=== PATIENT | female | born 1985 | race Caucasian/White ===

== ENCOUNTER 2018-10-18 13:48 | Day surgery (SDC) | payer MEDICAID, SELFPAY ==
[2018-10-18] VITALS (8 sets, daily range): BP systolic 109–131; BP diastolic 70–75; PULSE 78–110; RESP 16–18; TEMP 36.6–36.9; O2SAT 96–99; BMI 30.9
--- NOTE | 2018-10-18 14:08 | US_ITS ---
We are attempting to reach an attending provider to discuss findings. An addendum with communication details will be sent when the communication is complete. STUDY: ULTRASOUND OF THE FEMALE PELVIS - COMPLETE REASON FOR EXAM: Female, 32 years old. Bleeding TECHNIQUE: Transabdominal and transvaginal ultrasound images were obtained of the pelvis TECHNICAL QUALITY: Adequate. COMPARISON: Pelvic ultrasound from June 29, 2016 FINDINGS: The uterus measures 18 x 11 x 7 cm. Normal uterine cervix. The endometrium measures 26 mm in thickness. There is no demonstrated myometrial mass. The right ovary is not visualized. . There is no right ovarian cyst or ovarian mass. There is no visualized right adnexal mass or complex lesion. There is normal arterial and normal venous vascularity. There is a left adnexal hypoechoic region measuring 12 x 8.2 x 7.8 cm in size, hypoechoic, not well characterized. In association is a 6.2 x 6 x 4.2 cm cyst. There is minimal blood flow demonstrated. There is no fluid in the cul-de-sac. US/Transvaginal Non- IMPRESSION: Endometrial thickening of 26 mm, likely retained products of conception. Left adnexal hypoechoic region as described above with associated cyst. Nonspecific, with considerations including ovary/hemorrhagic cyst, enlarged ovary with torsion, uterine fibroid or mass, among other etiologies. Clinical correlation is suggested. Consider pelvic MRI if additional characterization is needed. Electronically Signed: [place], at 16:58 EDT Tel , Service support ,
--- NOTE | 2018-10-18 14:09 | ED.VISSUMM ---
- ER Visit Summary Date of Service: 10/18/18 Chief Complaint: Fever and abdominal pain History of Present Illness: The patient is a 32 F who presents with fever and abdominal pain for the past week. Patient had a vaginal delivery 1 week ago and has been having fever and pain ever since. Patient states the placenta was difficult to deliver. The patient has had a in the past but states this was a vaginal delivery. Patient states her pain is over the lower abdomen. Patient denies any nausea or vomiting. Patient denies any dysuria or hematuria. Patient states her vaginal bleeding is normal bleeding. Physical Examination: Vital signs are stable except for mild tachycardia of 110. Patient is afebrile. Patient is in no acute distress. Oral mucosa is pink and moist. Neck is supple. Trachea is midline. There is no JVD noted. Heart was regular and tachycardic. Lungs are clear and equal bilaterally. Abdomen is soft. Bowel sounds are normal. There is lower abdominal tenderness. There is no rebound or guarding noted. Test Results: CBC shows mild leukocytosis of 11.2. Hemoglobin was 8.1 and hematocrit was 24.4. Platelets were elevated at 529. Metabolic profile was normal. Urinalysis was normal. Blood type is O+. Ultrasound of the pelvis was obtained. There is thickened endometrium consistent with retained products of conception. There is also a 12 x 8.2 x 7.8 cm hypoechoic area in the left adnexa and a 6.2 x 6 x 4.2 cm cyst. This could be enlarged ovary with torsion, uterine fibroid or mass, hemorrhagic cyst, or enlarged ovary. Emergency Department Course and Treatment: Patient was given IV fluids and morphine. Case was discussed with Dr. Grande. She will be in to evaluate the patient and likely take the patient to surgery tonight. Patient was instructed to remain n.p.o. Patient understood and was agreeable with the plan. All questions were answered. Disposition: Admit to surgery Impression: 1. Ovarian torsion 2. Retained products of conception This note was generated with [employer] dictation software. It may contain incorrect words, spelling, and punctuation that were not noted in review of the chart prior to signing ED Disposition - Plan for ED Patient: Disposition: [facility] Diagnosis: Ovarian torsion, Retained products of conception Referrals: Jovanny Ernandez DO [Primary Care Provider] -
--- NOTE | 2018-10-18 14:12 | ED.DCSUM_ITS ---
- ER Visit Summary Date of Service: 10/18/18 Chief Complaint: Fever and abdominal pain History of Present Illness: The patient is a 32 F who presents with fever and abdominal pain for the past week. Patient had a vaginal delivery 1 week ago and has been having fever and pain ever since. Patient states the placenta was difficult to deliver. The patient has had a in the past but states this was a vaginal delivery. Patient states her pain is over the lower abdomen. Patient denies any nausea or vomiting. Patient denies any dysuria or hematuria. Patient states her vaginal bleeding is normal bleeding. Physical Examination: Vital signs are stable except for mild tachycardia of 110. Patient is afebrile. Patient is in no acute distress. Oral mucosa is pink and moist. Neck is supple. Trachea is midline. There is no JVD noted. Heart was regular and tachycardic. Lungs are clear and equal bilaterally. Abdomen is soft. Bowel sounds are normal. There is lower abdominal tenderness. There is no rebound or guarding noted. Test Results: CBC shows mild leukocytosis of 11.2. Hemoglobin was 8.1 and hematocrit was 24.4. Platelets were elevated at 529. Metabolic profile was normal. Urinalysis was normal. Blood type is O+. Ultrasound of the pelvis was obtained. There is thickened endometrium consistent with retained products of conception. There is also a 12 x 8.2 x 7.8 cm hypoechoic area in the left adnexa and a 6.2 x 6 x 4.2 cm cyst. This could be enlarged ovary with torsion, uterine fibroid or mass, hemorrhagic cyst, or enlarged ovary. Emergency Department Course and Treatment: Patient was given IV fluids and morphine. Case was discussed with Dr. Grande. She will be in to evaluate the patient and likely take the patient to surgery tonight. Patient was instructed to remain n.p.o. Patient understood and was agreeable with the plan. All questions were answered. Disposition: Admit to surgery Impression: 1. Ovarian torsion 2. Retained products of conception This note was generated with [employer] dictation software. It may contain incorrect words, spelling, and punctuation that were not noted in review of the chart prior to signing ED Disposition - Plan for ED Patient: Disposition: Acute Care [facility] Diagnosis: Ovarian torsion, Retained products of conception Referrals: Jovanny Ernandez DO [Primary Care Provider] -
--- NOTE | 2018-10-18 14:35 | ED.RN ---
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 DIFFICULTY WITH PLACENTA DELIVERY, WAS IN PIECES. INERMITTENT FEVER ANYWHERE FROM NORMAL TO 102 SINCE SUNDAY
[2018-10-18] MEDS: 0.9% Normal Saline 1,000 ML 1000 ML IV (14:55)
--- NOTE | 2018-10-18 14:56 | ED.RN ---
WAIT/OTHER D/T BREAST FEEDING INFANT.
[2018-10-18 15:00] LABS: Bacteria 0 SEEN /hpf (None Seen); Mucous, Urine 0 SEEN /hpf (<or=2+)
[2018-10-18 15:16] LABS: Absolute Lymphocyte Count 2.49 X10^3/ul (0.83-4.51); Absolute Neutrophil Count 7.1 X10^3/uL (2.0-7.7); Basophil# 0.05 X10^3/uL; Basophil% 0.4 % (0-1); Eosinophils% 3.6 % (0-5); Hematocrit 24.4 % (37-47); Hemoglobin 8.1 g/dl (12.0-15.0); Lymphocyte # 2.49 X10^3/ul (4.0); Lymphocyte % 22.3 % (19-41); Mean Corp Hgb Conc 33.2 g/gl (32-36); Mean Corpuscular Hgb 31.2 pg (27.0-32.0); Mean Corpuscular Volume 93.8 fL (81-99); Mean Platelet Vol. 8.5 fl (6.2-12.0); Monocyte% 9.8 % (0-10); Neutrophil # 7.06 X10^3/uL (2.7-7.7); Neutrophil % 63.3 % (47-70); Platelet Count 529 K/mm3 (150-450); RBC Distribution Width CV 12.7 % (11.6-14.6); RBC Distribution Width SD 43.4 fl (35.1-43.9); White Blood Count 11.2 K/mm3 (4.4-11.0)
[2018-10-18 15:18] LABS: Color, Urine Yellow (Yellow); Glucose, Dipstick Normal (Normal); Ketone-Dipstick Negative (Negative); Leukocyte Esterase-Dipstick 25 /ul (Negative); Nitrite-Dipstick Negative (Negative); Occult Blood-Urine 250 /ul (Negative); Protein-Dipstick 15 mg/dl (Negative); Urine Bilirubin Dipstick Negative (Negative); Urine Clarity Sl Cldy (Clear); Urine Urobilinogen Normal (Normal); Urine pH 6.5 (5.0 - 8.0)
[2018-10-18 15:21] LABS: Red Blood Cells-Urine 0-5 SEEN /hpf (0-5); Squamous Epithelial Cells - UA 0-5 SEEN /hpf (5-10); White Blood Cells 0-5 SEEN /hpf (0-5)
[2018-10-18 15:26] LABS: Differential Indicated SCAN CRITERIA MET; POSITIVE COUNT NO; POSITIVE DIFFERENTIAL NO; POSITIVE MORPHOLOGY YES
[2018-10-18 15:40] LABS: Anisocytosis 1+; Hypochromasia 1+; Macrocytosis RARE; Platelet Estimate MOD INC (ADEQ)
--- NOTE | 2018-10-18 17:50 | PCM.HP.STD ---
History of Present Illness Date of Admission: 10/18/18 Chief Complaint: fevers, abdominal pain The patient is a 32 year old 0 2 10 presents to Emergency Dept with CC of fever and abdominal pain for the past week. Patient had a vaginal delivery 1 week ago and has been having low grade fevers and pain ever since. Patient states the placenta was difficult to deliver. She is nursing and expects pain as uterus is geovanna. Patient states her pain is over the lower abdomen. Patient denies any nausea or vomiting. Patient denies any dysuria or hematuria. Patient states her vaginal bleeding is normal bleeding. CBC shows mild leukocytosis of 11.2. Hemoglobin was 8.1 and hematocrit was 24.4. Platelets were elevated at 529. Metabolic profile was normal. Urinalysis was normal. Blood type is O+. Ultrasound of the pelvis: UTERUS 18 x 11 x 7 cm. Normal uterine cervix. Endometrial stripe 2.6 cm No fibroids. The right ovary is not visualized. Left adnexal mass, hypoechoic -- 12 x 8.2 x 7.8 cm not well characterized. Also a 6.2 x 6 x 4.2 cm cyst. There is minimal blood flow demonstrated. There is thickened endometrium consistent with retained products of conception. There is also a 12 x 8.2 x 7.8 cm hypoechoic area in the left adnexa and a 6.2 x 6 x 4.2 cm cyst. This could be enlarged ovary with torsion, uterine fibroid or mass, hemorrhagic cyst, or enlarged ovary. POB: [id number] with all vaginal deliveries, except twin delivery by C/S PGYN: Negative. Menarche 10 yo. 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 Denies: Anorexia Eyes: Denies: Blurred vision HEENT: Denies: Difficulty Hearing Cardiovascular: Denies: Chest Pain Respiratory: Denies: Cough Gastrointestinal: Reports: Abdominal Pain - pain last week. Inc pain with nursing. Pain all over including some on the L side which is not bad at present. Gynecological: Reports: Vaginal bleeding - vaginal bleeding is light. Mentions it was difficult to remove the placenta from the L side of the uterus., - Psychiatric: Denies: Anxiety VTE Information - Inpt Only VTE Present on Admission: No VTE Mechan Device Prophylaxis: SCD's Patient Problems: Active and Suspected Problems Ovarian torsion (Acute) Retained products of conception (Acute) - Physical Exam General: Alert, Oriented x3, Cooperative, No apparent distress HEENT: Atraumatic Neck: Supple Abdomen: Soft - minimally tender at LLQ. Enlarged uterus, slightly tender to palpation Extremities: No clubbing, No cyanosis, No edema Skin: No rashes Neurological: Cranial nerves II-XII grossly intact Psych/Mental Status: Normal Affect, Appropriate Vital Signs Temp Pulse Resp BP Pulse Ox 98.4 F 78 18 120/72 99 10/18/18 13:49 10/18/18 16:16 10/18/18 16:16 10/18/18 16:16 10/18/18 16:16 Oxygen Delivery Method Room Air Weight: 89.539 kg Body Mass Index (BMI) 30.9 Laboratory Tests Past 24 Hrs 10/18/18 10/18/18 10/18/18 14:05 14:45 14:45 WBC 11.2 H RBC 2.60 L Hgb 8.1 L Hct 24.4 L MCV 93.8 MCH 31.2 MCHC 33.2 RDW 12.7 RDW Differential 43.4 Plt Count 529 H MPV 8.5 Immature Gran % (Auto) 0.600 Neut % (Auto) 63.3 Lymph % (Auto) 22.3 [place] % (Auto) 9.8 Eos % (Auto) 3.6 Baso % (Auto) 0.4 Absolute Neuts (auto) 7.1 Absolute Lymphs (auto) 2.49 Total Counted Not Reportable Platelet Estimate MOD INC Hypochromasia 1+ Anisocytosis 1+ Macrocytosis RARE Urine Color Yellow Urine Clarity Sl Cldy Urine pH 6.5 Ur Specific [place] 1.010 Urine Protein 15 H Urine Glucose (UA) Normal Urine Ketones Negative Urine Occult Blood 250 H Urine Nitrite Negative Urine Bilirubin Negative Urine Urobilinogen Normal Ur Leukocyte Esterase 25 H Urine RBC 0-5 SEEN Urine WBC 0-5 SEEN Ur Squamous Epith Cells 0-5 SEEN Urine Bacteria 0 SEEN Urine Mucus 0 SEEN Blood Type O POSITIVE Assessment/Plan All Active Problems Ovarian torsion (Acute) Retained products of conception (Acute) PPD#7 from Difficult placental removal #1 Possible retained POC. Low grade fevers and pelvic cramping. sono with likely retained POC. Adivsed pt and spouse that suction D and C may be performed to evaluate and treat this. They are concerned about baby feeding, as did not bring supplies to hospital and are hoping to be able to leave soon. #2 L adnexal mass. 12 x 8.2 x 7.8 cm hypoechoic, not well characterized. and 6.2 x 6 x 4.2 cm cyst. There is minimal blood flow demonstrated. Left adnexal hypoechoic region as described above with associated cyst. Possible ovary/hemorrhagic cyst, enlarged ovary with torsion, uterine fibroid or mass, among other etiologies. reviewed finding with patient and her . Explained surgical procedure to remove this. May begin with Laparoscopy but with enlarged uterus this would be technically difficult to manage through small incisions, laparoscopy. She is not painful as she had been last week. Option to follow this up outpatient and approach L/S as the uterus involutes. Declines Laparoscopy with potential laparotomy tonight for this L adenexal finding. Will follow up in 1-2 wk for repeat evaluation. and plan for later surgery to address this.
--- NOTE | 2018-10-18 18:30 | ED.RN ---
OR CALLED SECOND TIME FOR PT. PT SENT TO OR.
--- NOTE | 2018-10-18 18:30 | POC_PTH ---
PATIENT: MACRINA CRAIG LOC[place] [facility] [place][id number] AGE/SX: 32/F ROOM: RE10/18/[address]: Dr. Savanah Grande MD : [id number] BED: DIS: 10/18/2018 SPEC #: [id number] RECD: 10/22/18 09:32 STATUS: DANA JUWAN #: [id number] COREEN: 10/18/18 18:[address]: Savanah Grande DEPT: SURGICAL PATHOLOGY RECD BY: Garret Lerma ENTERED: 10/22/18 12:20 SP TYPE: PROD CONC OTHR DR: Dr. Jovanny Ernandez, Tissues: Product of conception, NOS Procedures: Surgery Specimen Level IV HEADER OPERATION: Dilation and curettage PRE-OP DIAGNOSIS: Possible retained products of conception TISSUE SUBMITTED: Products of conception MICROSCOPIC DIAGNOSIS Products of conception: Degenerative membranes with acute inflammation.. Degenerative immature chorionic villi and fragments of smooth muscle, consistent with retained products of conception. CE:pati 10/23/18 MICROSCOPIC DESCRIPTION Slides are reviewed. GROSS DESCRIPTION Received in fixative is one container labeled with the patient's name and designated products of conception. The specimen consists of multiple irregular fragments of dark trujillo soft tissue that in aggregate measure 10 x 9 x 3 cm. parts are not grossly recognized. Lease Administrator portions are submitted in one cassette. / AM:pati 10/22/18 TC:5 CPT: 52667
--- NOTE | 2018-10-18 18:34 | ED.RN ---
SIRENA FROM SURGERY CALLED. STATES TO SEND PT. OR AWARE PT NOT FULLY PREPPED. ANTIBIOTIC SENT TO OR FROM PHARMACY.
[2018-10-18] MEDS: Cefazolin 2 GM in 0.9% Normal Saline 100 ML IV (18:40)
--- NOTE | 2018-10-18 18:44 | DCINST_ITS ---
Discharge Diet: No Restrictions Discharge Activity: May Shower, May Take a Tub Bath Return to work on:: 11/25/18 May resume sexual activity in: 4-6 weeks Weight Bearing Status: Weight bearing as tolerated Call your doctor if you observe: Fever of 101 or Higher, Using more than one pad per hour, Uncontrolled pain Additional Instructions: You may take tylenol 500 mg tablets 1 or 2 by mouth every 8 hrs. You may take Ibuprofen 200 mg tablets , 2 to 3 every 4 hrs as needed for pain or cramping. Allergies/Adverse Reactions: Allergies No Known Allergies Allergy (Verified 10/18/18 13:51) Medications to take at Discharge No Known/Unobtainable [No Known Home Medications] 06/29/16 Primary Care Physician: Jovanny Ernandez DO [Primary Care Provider] - Test Results: Test results from this visit will be discussed in further detail at your follow- up appointment, if applicable. Please Follow Up With: Savanah Grande MD - [phone] When: 2 wks for postoperative follow up appointment. Proposed Discharge Date: 10/18/18
[2018-10-18] MEDS: Methylergonovine 0.2 MG/ML Ampul IM (19:12)
--- NOTE | 2018-10-18 19:47 | PCM.OPRPT ---
Problem List (1) Retained products of conception Status: Acute Report of Operation Date of Procedure: 10/18/18 Pre-Operative Diagnosis: 1 wk s/p retained POC Post-Operative Diagnosis: Same Surgery/Procedure Performed:: Suction D and C. Description of Surgical Findings:: Parous and dilated cervix. Uterus sounds to 18-19 cm and is slightly AV and to the Right. Tissue consistent with POC noted at curettage. Type of Anesthesia:: IV Sedation Anesthesiologist: Kandis Martin MD Specimen's removed: uterine curettings and POC Drains: Red Miranda catheter, clear yellow urine prior to the case approx 300 cc Estimated Blood Loss (mL): 50 cc Fluids Replaced: LR Description of Procedure: After the risks, benefits, alternatives of the procedure were reviewed with the patient, informed consent was obtained. The patient was taken to the operating room with an IV running and placed in dorsal supine position on the operating table. She was given MAC IV sedation and repositioned to the dorsal lithotomy position and prepped and draped in the usual sterile fashion. A large Graves speculum was placed into the vagina and the cervix was brought into view. Cervix was grasped with a single-toothed tenaculum at the anterior lip. The cervix was already dilated . The uterus sounded to 18-19 cm. A suction D and C was performed followed by a sharp curettage in multiple passes. Pieces of tissue (uterine curettings and POC) were were withdrawn and set aside for later pathology review. There was good crei in all quadrants at completion of the case. A quick look with bedside ultrasound showed a well defined endometrial stripe. This point the procedure was terminated the single-toothed tenaculum was removed from the anterior lip of the cervix and a sponge stick was used to remove any remaining tissue and blood from the upper vagina and cervix. Excellent hemostasis was noted. The speculum was removed. The patient was returned to dorsal supine position and awakened from IV sedation and then transferred to her recovery room bed in stable condition after tolerating the procedure well. Sponge, lap, needle, and instrument counts were correct x2. Medications given intraoperatively included : Toradol 30 mg IV times one, and Methergine 0.2 mg IM in L thigh times one. For complete listing the medications given intraoperatively, see the anesthesia record. - Complications None. - Admit VTE Documentation VTE Present on Admission: No VTE Pharm Prophylaxis ordered?: No
== END 2018-10-18 20:45 | disposition home or self-care (01) ==
LOC: ED 18:11 → SDC 18:44 → AC 18:46
PROVIDERS: Emergency Provider Emergency Medicine; Family Provider Family Medicine; PCP Family Medicine; Referring Provider Obstetrics & Gynecology; Visit Provider Obstetrics & Gynecology
PROC: (CPT 59160; principal; 2018-10-18 18:15)
DX: O73.1 Retained portions of placenta and membranes, without hemorrhage (principal); E66.9 Obesity, unspecified; Z68.30 Body mass index [BMI] 30.0-30.9, adult
CPT/HCPCS: 59160; 76830; 81001; 85025; 86900; 88305; 99282; J7030; J2405

== ENCOUNTER → 2018-11-01 | Outpatient (CLI) | payer SELFPAY ==
[2018-10-18 18:30] VITALS: BMI 30.9
--- NOTE | 2018-11-01 08:05 | MRI_ITS ---
STUDY: MR PELVIS WITH T WITHOUT CONTRAST REASON FOR EXAM: Female, 33 years old. Adnexal mass TECHNIQUE: Standardized fat and water weighted pulse sequences were obtained in all 3 orthogonal planes, pre-and post contrast administration. 17 IV Dotarem was administered for the contrast portion of the examination. COMPARISON: Pelvic ultrasound 10/18/2018 FINDINGS: Normal urinary bladder. Normal visualized small intestine. Normal visualized colon. There is no pelvic fluid. 2.5 x 3.5 cm oval heterogeneous mass within the endometrial cavity worrisome for retained products of conception or gestational trophoblastic disease. 6.5 x 10.0 cm lobulated thick-walled cystic mass in the left adnexa with suspected extension into the left paracolic gutter. Differential diagnosis includes ovarian cystadenoma, cystadenocarcinoma, abscess, or endometrioma. Normal visualized pelvic arteries. Normal osseous structures. Normal abdominal wall. MRI/Pelvis W/WO Contrast IMPRESSION: 1. 2.5 x 3.5 cm endometrial mass worrisome for retained products of conception or gestational trophoblastic disease. 2. 6.5 x 10.0 cm multiloculated cystic mass in the left adnexa worrisome for ovarian cystadenoma, cystadenocarcinoma, abscess, or endometrioma. There is suspected extension into the left paracolic gutter which is somewhat unusual. CT may be useful. Electronically Signed: Victoriano Uribe MD at 15:50 EDT Tel , Service support ,
== END | disposition home or self-care (01) ==
PROVIDERS: Family Provider Family Medicine; PCP Family Medicine; Referring Provider Obstetrics & Gynecology; Visit Provider Obstetrics & Gynecology
DX: R19.09 Other intra-abdominal and pelvic swelling, mass and lump (principal)
CPT/HCPCS: 72197; A9575

== ENCOUNTER 2018-11-20 05:50 | Day surgery (SDC) | payer SELFPAY ==
[2018-10-18 18:30] VITALS: BMI 30.9
[2018-11-18 13:12] VITALS: BP 118/65; PULSE 76; RESP 16; TEMP 36.6; O2SAT 96; BMI 29.8
--- NOTE | 2018-11-18 13:43 | PCM.HPOB.BLA ---
History and Physical Date of Admission: 11/20/18 Name: MACRINA TORRES Age: 33 HISTORY OF PRESENT ILLNESS: On 11/18/2018, Macrina Torres, a 33 year old female 7 1 3 1 8, presented for: -- Pre-Op Macrina is here today for pre op appointment. Patient is scheduled for Dx lap cystectomy possible oophorectomy 11/20/2018. Patient to have labs done after appointment in office today and to have PAT at [facility] at 1p. Consents reviewed with patient and signed. jlb Here for preop appt prior to planned laparoscopy with removal of L adnexal mass, and possible removal of L tube and ovary if these are the source of the mass. She had presented to the ED with CC of continued heavy bleeding about a week after vaginal delivery at home. 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 CT done at time showed a large L adnexal mass of uncertain etiology. MRI suggested and done then 11/01/18: 6.5 x 10.0 cm lobulated thick-walled cystic mass in the left adnexa with suspected extension into the left paracolic gutter. Differential diagnosis includes ovarian cystadenoma, cystadenocarcinoma, abscess, or endometrioma. Sono at ofc prior the MRI with ? extension of this mass from the prior uterine incision? possible t rupture of the uterine incision at . Still uncertain re etiology of these findings and needs direct look by laparoscopy... EB ALLERGIES: No Known Allergies MEDICATIONS HISTORY: none. REVIEW OF SYSTEMS: GENERAL - Denies fever, or chills SKIN - Denies skin changes EYES - wears eye glasses EARS - Denies difficulty hearing NOSE - Denies nasal congestion or bleeding MOUTH - Denies sore throat or difficulty swallowing NECK - Denies pain or swelling RESPIRATORY - Denies shortness of breath or wheezing CARDIOVASCULAR - Denies palpitations or chest pain GASTROINTESTINAL - Denies nausea, vomiting, diarrhea, constipation GENITOURINARY - Denies dysuria, frequency of urination, incontinence of urine MUSCULOSKELETAL - Denies joint or muscle pain NEUROLOGICAL - Denies localized numbness or weakness PSYCHIATRIC - Denies depression or anxiety ENDOCRINE - Denies heat or cold intolerance, weight loss or gain HEMATO-IMMUNOLOGIC - Denies excesive bleeding with cuts PAST HISTORY: Breast/Ovarian/Colon Cancers - Denies Infections - Chicken pox Illnesses - no serious past illnesses Accidents - None History of Abnormal PAPS - Denies Hospitalizations - see surgery SURGICAL HISTORY: 1. 04/20/2017 2. 10/18/2018 suction D and C Savanah Grande M.D. 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 Employer - [employer] Illicit Drug Use - None Sexual Activity - Spouse-Sig Other Name - [place] Spouse-Sig Other Occupation - [employer] Children Name(s) - 8 children Control - Would like to discuss PHYSICAL EXAMINATION BP- 126/80 Sitting, Right arm, regular cuff Temp- 97.9 Taken Orally Weight- 190.00 lbs Height- 67.00 inch BMI:29.82 CONSTITUTIONAL - NAD, well nourished, and well developed HEENT - Normocephalic, PERRLA, EOMI NECK - no nuchal rigidity ABDOMEN - no masses, no tenderness EXTREMITIES - No edema or calf tenderness NEUROLOGICAL - Cranial nerves II-XII grossly intact PSYCHIATRIC - A and O to time, place, person, mood and affect ASSESSMENT: 1. Other Intra-abdominal And Pelvic Swelling, Mass And Lump PLAN BY DIAGNOSIS: 1. Other Intra-abdominal And Pelvic Swelling, Mass And Lump Reviewed [facility] sono report and images Repeat sono in ofc prior: possible communication of hematoma with lower uterine segment. ? rupture of uterine incision after at home. MRI done unable to delineate finding further Plan now for laparoscopy and removal of the L adnexal mass, possible removal of L fallopian tube and / or ovary if involved in the mass seen. Also advised that if mass is related to uterus/ incision, no removal planned. R,B,A of surgery discussed. Anticipated preop, operative and postop recovery discussed also. All questions answered to patient's and spouse's satisfaction and consents signed and on chart. To PAT next for labs. RTO in 2 wk after surgery for postop check up. The visit was approximately 15 minutes in length with most of the time spent in discussion and counseling.
[2018-11-18 15:48] LABS: Hematocrit 38.2 % (37-47); Hemoglobin 12.1 g/dl (12.0-15.0); Mean Corp Hgb Conc 31.7 g/gl (32-36); Mean Corpuscular Hgb 29.8 pg (27.0-32.0); Mean Corpuscular Volume 94.1 fL (81-99); Mean Platelet Vol. 10.3 fl (6.2-12.0); Platelet Count 331 K/mm3 (150-450); RBC Distribution Width CV 12.6 % (11.6-14.6); RBC Distribution Width SD 42.5 fl (35.1-43.9); Red Blood Count 4.06 M/mm3 (4.2-5.4); White Blood Count 7.2 K/mm3 (4.4-11.0)
[2018-11-18 15:50] LABS: Scan Indicated on CBC? Y/N NO
[2018-11-18 16:08] LABS: Internal QC Validated? YES +Cl - CLEAR BKGD; Pregnancy, Serum, hCG Quali. NEGATIVE Negative; Prothrombin Time (Protime)PT. 13.1 SECONDS (11.7-14.9)
[2018-11-18 16:09] LABS: Partial Thromboplast Time 34.9 Seconds (24.1-36.2)
[2018-11-20 06:15] LABS: Internal QC Validated? YES +Cl - CLEAR BKGD; Pregnancy, Urine Negative Negative
[2018-11-20 06:34] VITALS: BP 119/73; PULSE 78; RESP 16; TEMP 36.4; O2SAT 100; BMI 29.8
[2018-11-20] MEDS: Bupiv/Epi 0.5% Mpf 30 ML Vial (07:40)
--- NOTE | 2018-11-20 07:53 | PCM.DC ---
You will use the following diet at home:: No restrictions, Regular Discharge Activity: May not drive while taking narcotic pain medications., May Shower, May Take a Tub Bath Return to work on:: 11/22/18 May resume sexual activity in: 1-2 weeks Weight Bearing Status: Weight bearing as tolerated Call your doctor if you observe: Fever of 101 or Higher, Change in Color, Uncontrolled pain Additional Instructions: Resume all activity as comfortable after 11/20/18. You may take Tylenol for milder pain. Add 2 Aleve or 2 Ibuprofen if moderate pain. Add OxyIR for more severe pain. Allergies/Adverse Reactions: Allergies No Known Allergies Allergy (Verified 11/18/18 13:09) Medications to take at Discharge Oxycodone [Oxyir] 5 mg PO Q6H PRN PRN 3 Days #10 tab 11/20/18 The following prescriptions were given: Oxycodone [Oxyir] 5 mg PO Q6H PRN PRN 3 Days #10 tab PRN Reason: Mod-Severe Pain (4-03/06) Transmission Status: Sent to [facility] Orders to be completed after discharge: ,Urine Time Frame: 11/20/18, Facility: [facility], Location: Laboratory Primary Care Physician: Jovanny Ernandez DO [Primary Care Provider] - Test Results: Test results from this visit will be discussed in further detail at your follow-up appointment, if applicable. Please Follow Up With: Savanah Grande MD - [phone] When: in 2 wks for postoperative check up
[2018-11-20 08:10] VITALS: BP 119/73; BP 127/61; PULSE 85; RESP 14; TEMP 36.5; O2SAT 99
[2018-11-20 08:15] VITALS: BP 119/73; BP 120/66; PULSE 88; RESP 16; O2SAT 99
[2018-11-20 08:30] VITALS: BP 119/73; BP 127/73; PULSE 63; RESP 16; TEMP 36.2; O2SAT 100
--- NOTE | 2018-11-20 08:37 | PCM.OPRPT ---
Report of Operation Date of Procedure: 11/20/18 Pre-Operative Diagnosis: Cystic L adnexal mass Post-Operative Diagnosis: Same. retroperitoneal mass at L adnexa displacing uterus to right Surgery/Procedure Performed:: Diagnostic laparoscopy Description of Surgical Findings:: Uterus normal in size, appearance. Adhesions noted midline lower uterins segment to bladder. uterus displaced to the right side. Normal appearing ovaries and fallopian tubes bilaterally. Retroperitoneal mass to the L side of the uterus, lower uterine segment/adnexa. Normal appearing bowel omentum, RUQ, liver edge. clinical informatics strategist: Julieta Sandoval Type of Anesthesia:: General Anesthesiologist: Luda Potts CRNA Specimen's removed: none Drains: Red Miranda prior to case Estimated Blood Loss (mL): 10 cc Fluids Replaced: LR Description of Procedure: Narrative account: After the risks, benefits, alternatives of procedure had been reviewed with the patient, informed consent was obtained. The patient was taken back to the Operating room with an IV running. she was positioned on the operating table in dorsal supine position, where she was given general anesthesia. Once asleep she was repositioned to the dorsal lithotomy position and prepped and draped in the usual sterile fashion with arms tucked at the sides. A red Miranda catheter was used to drain the bladder prior to initiating the case. A single toothed tenaculum and Margo cannula were placed into the cervix to allow manipulation of the uterus and cervix during the case. Attention was then turned to the anterior abdominal wall where 0.25 % Marcaine with epinephrine was instilled at the suprapubic and infraumbilical skin and at a point midway between in the midline. Skin incisions were then created in the midline at the suprapubic skin and at the infraumbilical skin and midway between the two. While maintaining upward traction of the anterior abdominal wall a Veress needle was inserted through the umbilical incision into the peritoneal cavity. There was free drop of saline, low opening pressure and free flow of CO2 noted. Once the intraabdominal pressure had reached 15 mm of mercury the Veress needle was removed and a bladeless 5 mm trocar was placed through infraumbilical skin incision into the peritoneal cavity. Correct placement was confirmed using the scope. Under direct visualization then with the patient in Trendelenburg position, a bladeless 5 mm trocar was inserted in through suprapubic skin incision into the peritoneal cavity and at a point midway between the infraumbilical and suprapubic trocars. The uterus is anteverted and displaced to the right side and both ovaries and fallopian tubes were WNL. There was a retroperitoneal mass noted at the L adnexa, Photos were taken of the uterus and normal appearing bilateral fallopian tubes and ovaries and of the RUQ and liver edge. After consideration, the decision was made NOT to aspirate the cystic retroperitoneal mass as the patient is not painful or symptomatic due to this cystic adnexal mass-- as to aspirate would risk potential of bleeding which may require an open procedure. At this point the the procedure was terminated. The pneumoperitoneum was reduced and the instruments and trocars were removed from he the anterior abdominal wall skin. The skin incisions were closed with 4-0 Monocryl in a subcuticular fashion. Sterile dressings were applied to the skin. The Single toothed tenaculum and Margo cannula were removed from the vagina. The patient was returned to dorsal supine position. She was awakened from general anesthesia. She was transferred to the recovery room bed in stable condition after tolerating the procedure well. Sponge, lap, needle and instrument counts were correct x two. Medications given preop and intraoperatively included: 10 cc of 1/2 % Marcaine with epinephrine --used as a subcutaneous block and Toradol 30 mg IV x one. For a complete listing of medications given preop and intraop , please see the anesthesia record.
[2018-11-20 10:08] VITALS: BP 101/55; BP 119/73; PULSE 65; RESP 16; TEMP 36.4; O2SAT 98
== END 2018-11-20 10:36 | disposition home or self-care (01) ==
LOC: SDC 05:51 → AC 05:52
PROVIDERS: Family Provider Family Medicine; PCP Family Medicine; Referring Provider Obstetrics & Gynecology; Visit Provider Obstetrics & Gynecology
PROC: (CPT 49320; principal; 2018-11-20 07:15)
DX: R19.09 Other intra-abdominal and pelvic swelling, mass and lump (principal)
CPT/HCPCS: 49320; 36415; 81025; 84703; 85027; 85610; 85730; 86850; 86900; J7120; J2405